=== PATIENT | male | born 1985 | race Hispanic/Latino ===

== ENCOUNTER 2017-07-09 00:04 | Emergency (ER) | payer SELFPAY ==
[~2017-07-09] VITALS: Ht 160 cm; Wt 61.3 kg
[2017-07-09 07:40] VITALS: BP 123/64
== END 2017-07-09 07:45 | DRG 605 ==
LOC: ED 00:04
DX: S00.81XA Abrasion of other part of head, initial encounter (principal); F10.129 Alcohol abuse with intoxication, unspecified; W18.39XA Other fall on same level, initial encounter; Y93.89 Activity, other specified